=== PATIENT | male | born 1995 | race Caucasian/White ===

== ENCOUNTER 2018-03-31 04:18 | Emergency (ER) | payer BC ==
[~2018-03-31] VITALS: Ht 180.3 cm; Wt 65.8 kg
[2018-03-31] MEDS ORDERED: IBUPROFEN 600 MG TABLET PO ONE ×2 (05:00→05:24)
[2018-03-31 05:38] VITALS: BP 125/63
--- NOTE | 2018-03-31 05:40 | NUR ---
RECEIVED CALL FROM LAB STATING PT IS +INFLUENZA A. AWARE.
== END 2018-03-31 06:09 | disposition home or self-care (01) ==
LOC: ER 04:29
DX: J09.X2 Influenza due to identified novel influenza A virus with other respiratory manifestations (principal); F10.10 Alcohol abuse, uncomplicated; Y90.9 Presence of alcohol in blood, level not specified; Z90.89 Acquired absence of other organs
CPT/HCPCS: 87400